=== PATIENT | female | born 1950 | race Caucasian/White ===

== ENCOUNTER 2019-08-24 09:17 | Day surgery (SDC) | payer MEDICARE ==
[~2019-08-24] VITALS: Ht 160 cm; Wt 72.5 kg
[~2019-08-24 09:17] MED LIST: ALPR.5 PO; CRUTCH2 USE; HYDACE5 PO; IBUP800; LISI20 PO; MECL12.5 PO; OMEPRAZOLE MAGN20 MG PO; PARO20 PO; SUCR1 PO; Zofran Odt4 MG PO
--- NOTE | 2019-08-24 11:55 | NUR ---
08/24/19 1155 Flip Cuellar DISCHARGE TEACHING COMPLETED WITH GAMALIEL CAREY AND THEIR DAUGHTER. ALL QUESTIONS ANSWERED. PT DENIES PAIN OR DISCOMFORT. TOLERATING PO FLUIDS WELL. VSS.
== END 2019-08-24 11:45 | disposition home or self-care (01) ==
LOC: ORSCSDS 09:17
PROVIDERS: Internal Medicine Gastroenterology
PROC: 0DBP8ZX Excision of Rectum, Via Natural or Artificial Opening Endoscopic, Diagnostic (ICD-10-PCS; principal; 2019-08-24 10:30)
DX: Z12.11 Encounter for screening for malignant neoplasm of colon (principal); K62.1 Rectal polyp; K57.30 Diverticulosis of large intestine without perforation or abscess without bleeding; Z86.010 Personal history of colon polyps; Z80.0 Family history of malignant neoplasm of digestive organs; Z87.891 Personal history of nicotine dependence; I10 Essential (primary) hypertension; Z86.73 Personal history of transient ischemic attack (TIA), and cerebral infarction without residual deficits; Z79.82 Long term (current) use of aspirin; Z79.899 Other long term (current) drug therapy
CPT/HCPCS: 88305; J2704; J7120

== ENCOUNTER 2021-05-24 06:21 | Day surgery (SDC) | payer MEDICARE ==
[~2021-05-24] VITALS: Ht 160 cm; Wt 77.1 kg
[~2021-05-24 06:21] MED LIST changes: +ATOR10 PO; +Aspir 8181 MG PO; +IBUP600 PO; +LATA.005SO BOTHEYES; +MUPIROCIN22 G4; +Norco 5-325 Ta1 EACH PO; +PAROEX473 ML; +PAXIL40 M1 PO
[2021-05-24] MEDS ORDERED: OMEP20ER PO (06:33)
== END 2021-05-24 08:09 | disposition home or self-care (01) ==
LOC: ORSCSDS 06:21
PROVIDERS: Ophthalmology
PROC: 08RJ3JZ Replacement of Right Lens with Synthetic Substitute, Percutaneous Approach (ICD-10-PCS; principal; 2021-05-24 07:30)
DX: H25.11 Age-related nuclear cataract, right eye (principal); I10 Essential (primary) hypertension; Z79.82 Long term (current) use of aspirin; Z79.899 Other long term (current) drug therapy
CPT/HCPCS: J2001; J2250; J3010; J3301; J7040; V2632

== ENCOUNTER 2021-06-23 12:10 | Emergency (ER) | payer MEDICARE ==
[~2021-06-23] VITALS: Ht 160 cm; Wt 77.1 kg
[~2021-06-23 12:10] MED LIST changes: +OMEP20ER PO
[2021-06-23 14:16] LABS: Source, Urine Clean Catch
[2021-06-23 14:20] LABS: BASOPHILS ABSOLUTE AUTO 0.04 K/mm3 (0.00-0.23); BASOPHILS PERCENT AUTO 1 % (0-2); EOSINOPHILS ABSOLUTE AUTO 0.01 K/mm3 (0.00-0.68); EOSINOPHILS PERCENT AUTO 0 % (0-6); Hematocrit 50.7 % (33.0-51.0); Hemoglobin 16.8 g/dL (11.5-16.0); IMMATURE GRAN ABSOLUTE AUTO 0.01 K/mm3 (0.00-0.10); IMMATURE GRAN PERCENT AUTO 0 % (0-1); LYMPHOCYTES ABSOLUTE AUTO 1.93 K/mm3 (0.84-5.20); LYMPHOCYTES PERCENT AUTO 35 % (21-46); MONOCYTES ABSOLUTE AUTO 0.65 K/mm3 (0.16-1.47); MONOCYTES PERCENT AUTO 12 % (4-13); Mean Corpuscular HGB 29.8 pg (26.0-34.0); Mean Corpuscular HGB Conc 33.1 g/dL (31.5-36.5); Mean Corpuscular Volume 90 fL (80-100); Mean Platelet Volume 10.7 fL (9.1-12.4); NEUTROPHILS ABSOLUTE AUTO 2.96 K/mm3 (1.96-9.15); NEUTROPHILS PERCENT AUTO 53 % (41-73); Platelet Count 214 K/mm3 (150-400); RDW Coefficient Variation 14.4 % (11.7-14.2); Red Blood Cell Count 5.63 M/mm3 (3.80-5.20)
[2021-06-23 14:20] LABS: Appearance, Urine Clear (Clear); Bilirubin, Urine Neg (Neg); Blood, Urine 1+ (Neg); Color, Urine Yellow (P-Yellow); Glucose Qualitative, Urine Neg (Neg); Ketones, Urine 3+ (Neg); Leukocyte Esterase, Urine 1+ (Neg); Nitrite, Urine Neg (Neg); Protein, Urine Neg (Neg); Specific Gravity, Urine 1.015 (1.003-1.022); Urobilinogen, Urine NORM (Normal)
[2021-06-23 14:40] LABS: Albumin/Globulin Ratio 1.1 (0.8-1.8); Bilirubin, Total 0.7 mg/dL (0.1-1.0); Bun/Creatinine Ratio 14.4 (12.0-20.0); Creatinine, Blood 0.97 mg/dL (0.40-1.00); Globulin, Blood 3.7 g/dL (2.2-4.0); Potassium, Blood 4.2 mmol/L (3.5-5.5); Total Protein, Blood 7.7 g/dL (6.4-8.2)
[2021-06-23 14:40] LABS: Bacteria Mod /hpf; Red Blood Cells, Urine 0-2 /hpf (0-2); Squamous Epithelial Cells Many /hpf (Few); White Blood Cells, Urine 0-2 /hpf (0-5)
[2021-06-23] MEDS ORDERED: DICY20 PO (17:50)
[2021-06-23] MEDS ORDERED: OMEP20ER PO (18:06)
== END 2021-06-23 18:07 | disposition home or self-care (01) ==
LOC: ER 12:10
PROVIDERS: Physician Assistant
DX: R19.7 Diarrhea, unspecified (principal); R10.30 Lower abdominal pain, unspecified; I10 Essential (primary) hypertension; E78.5 Hyperlipidemia, unspecified; Z79.82 Long term (current) use of aspirin; Z79.899 Other long term (current) drug therapy; Z87.891 Personal history of nicotine dependence
CPT/HCPCS: 36415; 74177; 80053; 81001; 83690; 85025; 87086; 96374-59; 96375; 99284-25; A9270; J2405; J3010; Q9967

== ENCOUNTER 2021-06-28 12:31 | Emergency (ER) | payer MEDICARE ==
[~2021-06-28] VITALS: Ht 160 cm; Wt 77.1 kg
[~2021-06-28 12:31] MED LIST changes: +DICY20 PO
[2021-06-28 13:04] LABS: BASOPHILS ABSOLUTE AUTO 0.01 K/mm3 (0.00-0.23); BASOPHILS PERCENT AUTO 0 % (0-2); EOSINOPHILS ABSOLUTE AUTO 0.01 K/mm3 (0.00-0.68); EOSINOPHILS PERCENT AUTO 0 % (0-6); Hematocrit 47.5 % (33.0-51.0); Hemoglobin 16.4 g/dL (11.5-16.0); IMMATURE GRAN ABSOLUTE AUTO 0.01 K/mm3 (0.00-0.10); IMMATURE GRAN PERCENT AUTO 0 % (0-1); LYMPHOCYTES ABSOLUTE AUTO 1.45 K/mm3 (0.84-5.20); LYMPHOCYTES PERCENT AUTO 36 % (21-46); MONOCYTES ABSOLUTE AUTO 0.37 K/mm3 (0.16-1.47); MONOCYTES PERCENT AUTO 9 % (4-13); Mean Corpuscular HGB Conc 34.5 g/dL (31.5-36.5); Mean Corpuscular Volume 87 fL (80-100); Mean Platelet Volume 11.6 fL (9.1-12.4); NEUTROPHILS ABSOLUTE AUTO 2.17 K/mm3 (1.96-9.15); NEUTROPHILS PERCENT AUTO 54 % (41-73); Platelet Count 126 K/mm3 (150-400); RDW Coefficient Variation 14.6 % (11.7-14.2); RDW Standard Deviation 47.3 fL (35.1-46.3); Red Blood Cell Count 5.46 M/mm3 (3.80-5.20); White Blood Cell Count 4.02 K/mm3 (4.00-11.30)
[2021-06-28 13:27] LABS: Alanine Aminotransfer (ALT/SGP 29 U/L (12-78); Albumin, Blood 3.4 g/dL (3.4-5.0); Alk Phos 98 U/L (50-136); Anion Gap 10 mmol/L (6-16); Aspartate Aminotrans (AST/SGOT 30 U/L (12-37); Bilirubin, Total 0.6 mg/dL (0.1-1.0); Blood Urea Nitrogen 15 mg/dL (8-24); Bun/Creatinine Ratio 17.5 (12.0-20.0); CO2, Blood 22 mmol/L (21-32); Calcium, Blood 8.4 mg/dL (8.5-10.1); Chloride, Blood 105 mmol/L (98-108); Creatinine, Blood 0.86 mg/dL (0.40-1.00); Globulin, Blood 3.5 g/dL (2.2-4.0); Glomerular Filtration Rate >60 (60-); Glucose, Blood 93 mg/dL (70-99); Sodium, Blood 137 mmol/L (136-145); Total Protein, Blood 6.9 g/dL (6.4-8.2)
[2021-06-28] MEDS ORDERED: LOPE2C PO (13:47)
[2021-06-28] MEDS ORDERED: SUCR1 PO (13:47)
[2021-06-28] MEDS ORDERED: FAMO20 PO (13:47)
== END 2021-06-28 15:47 | disposition home or self-care (01) ==
LOC: ER 12:31
PROVIDERS: Emergency Medicine
DX: U07.1 COVID-19 (principal); I10 Essential (primary) hypertension; E78.5 Hyperlipidemia, unspecified; Z79.899 Other long term (current) drug therapy; Z79.82 Long term (current) use of aspirin
CPT/HCPCS: 80053; 83690; 85025; 93005; 93010; 96374; 96375; 99284-25; A9270; J2405; J3010; J7030

== ENCOUNTER 2021-07-27 06:46 | Day surgery (SDC) | payer MEDICARE ==
[~2021-07-27] VITALS: Ht 160 cm; Wt 75.7 kg
[~2021-07-27 06:46] MED LIST changes: +FAMO20 PO; +LOPE2C PO
--- NOTE | 2021-07-27 07:20 | NUR ---
07/27/21 0720 Zelda Singh TETRACAINE DROP PLACED IN LT EYE PER DR ORDERS. PLEDGET PLACED IN LT EYE PER DR ORDERS AT 0708.
== END 2021-07-27 09:04 | disposition home or self-care (01) ==
LOC: ORSCSDS 06:46
PROVIDERS: Ophthalmology
PROC: 08RK3JZ Replacement of Left Lens with Synthetic Substitute, Percutaneous Approach (ICD-10-PCS; principal; 2021-07-27 08:00)
DX: H25.12 Age-related nuclear cataract, left eye (principal); I10 Essential (primary) hypertension; K21.9 Gastro-esophageal reflux disease without esophagitis; Z86.73 Personal history of transient ischemic attack (TIA), and cerebral infarction without residual deficits; Z79.899 Other long term (current) drug therapy; Z79.82 Long term (current) use of aspirin
CPT/HCPCS: J2001; J2250; J2704; J3010; J3301; V2632